=== PATIENT | male | born 1975 | race Caucasian/White ===

== ENCOUNTER 2016-08-30 09:41 | Emergency (ER) | payer OTHER ==
[~2016-08-30] VITALS: Ht 182.9 cm; Wt 90.8 kg
[2016-08-30 09:43] VITALS: BP 166/90
[2016-08-30] MEDS ORDERED: PROPARACAINE OPHTH 0.5%, 15ML ONE ×2 (10:25→11:09)
[2016-08-30] MEDS ORDERED: FLUORESCEIN OPHTHALMIC 1 MG STRIP ONE (10:56)
[2016-08-30] MEDS ORDERED: PHEN100C PO (11:20)
== END 2016-08-30 12:26 | disposition home or self-care (01) ==
LOC: ED 10:16
DX: H10.212 Acute toxic conjunctivitis, left eye (principal); H53.8 Other visual disturbances
CPT/HCPCS: 99283